=== PATIENT | female | born 1980 | race Caucasian/White ===

== ENCOUNTER 2020-12-06 16:37 | Emergency (ER) | payer OTHER ==
[~2020-12-06] VITALS: Ht 165.1 cm; Wt 56.7 kg
[2020-12-06] MEDS ORDERED: PENICILLIN V P500 MG PO (17:23)
[2020-12-06 17:35] VITALS: BP 118/66
== END 2020-12-06 17:35 | disposition home or self-care (01) ==
LOC: M.ERS 16:37
DX: K04.7 Periapical abscess without sinus (principal)